=== PATIENT | female | born 1945 ===

== ENCOUNTER 2025-01-09 08:00 | Day surgery (SDC) | payer OTHER ==
[2025-01-01 10:48] VITALS: BP 114/64
[2025-01-01 11:35] LABS: BASO % 0.4 % (0.1-1.2); EOS # 0.13 (0.04-0.54); EOS % 2.8 % (0.7-7.0); LYMPH # 1.07 (1.18-3.74); LYMPH % 23.3 % (19.3-53.1); MEAN PLATELET VOLUME 9.90 fl (9.4-12.4); MONO # 0.42 (0.24-0.82); MONO % 9.2 % (4.7-12.5); NEUT # 2.95 (1.56-6.13); NEUT % 64.3 % (34.0-71.1); RED CELL DISTRIBUTION WIDTH 12.3 % (11.6-14.4)
[2025-01-01 12:01] LABS: URINE APPEARANCE Cloudy; URINE BILIRRUBIN Negative (NEGATIVE); URINE BLOOD Negative; URINE COLOR Yellow; URINE GLUCOSE Negative (NEGATIVE); URINE KETONE Trace (NEGATIVE); URINE LEUKOCYTE Moderate; URINE NITRATE Positive; URINE PROTEIN Negative (NEGATIVE); URINE UROBILINOGEN 0.2 E.U./dl
[2025-01-01 12:02] LABS: URINE EPITHELIAL CELLS 21.0 uL (0.0-38.8); URINE WBC 74.4 uL (0.0-23.2)
[2025-01-01 12:12] LABS: INR 0.99
[2025-01-01 12:17] LABS: ALT/SGPT 26.0 U/L (12-78); AST/SGOT 24.0 U/L (15-37); BILIRUBIN TOTAL 0.41 mg/dL (0.3-1.2); BUN CREA RATIO 25.0 (7.0-25.0); CREATININE SERUM 0.64 mg/dL (0.55-1.02); GFR 89.74; GLOBULINA 4.0 G/DL (2.4-3.5); GLUCOSE FASTING 102.0 mg/dL (65-100); OSMOLALITY SERUM 284.0 MOSM/KG (275-295)
[2025-01-01 12:25] LABS: URINE BACTERIA > 9821.5 uL (0.0-1933); URINE CAST 0.43 uL (0.0-1.40); URINE RBC 1.0 uL (0.0-20.8)
[2025-01-01 12:26] LABS: TYPE CELLS RENAL TUBULAR
[~2025-01-09] VITALS: Ht 157.5 cm; Wt 61.2 kg
[~2025-01-09 08:00] MED LIST: GAMMAGARD LIQUI25 ML; PRAVASTATIN SOD10 MG PO; ZYRTEC10 M3 PO
[2025-01-09] MEDS ORDERED: METRONIDAZOLE/SODIUM CHLORIDE 500 MG/100 ML PIGGYBACK IV ONE (08:54)
[2025-01-09] MEDS ORDERED: HEMOSTATIC MATRIX 1 KIT KIT TOP ONE (09:34)
[2025-01-09] MEDS ORDERED: BUPIVACAINE HCL/MPF 0.5% 30ML VIAL ONE (09:34)
[2025-01-09] MEDS ORDERED: LIDOCAINE HCL 1%/EPINEPHRINE 20ML VIAL IJ ONE (09:34)
[2025-01-09] MEDS ORDERED: POVIDONE-IODINE 118 ML BOTT TOP ONE (09:34)
[2025-01-09] MEDS ORDERED: DIBUCAINE 30 GM TUBE ONE (09:34)
[2025-01-09] MEDS ORDERED: DEXAMETHASONE SODIUM PHOSPHATE 4 MG/ML VIAL ONE (11:03)
[2025-01-09] MEDS ORDERED: DEXAMETHASONE SODIUM PHOSPHATE 4 MG/ML VIAL IV ONE (11:15)
[2025-01-09] MEDS ORDERED: LEVOFLOXACIN750 MG PO (11:24)
[2025-01-09] MEDS ORDERED: TRAM1TAB98 PO (11:25)
[2025-01-09] MEDS ORDERED: INTESTINEX680 M1 PO (11:25)
[2025-01-09] MEDS ORDERED: NEURONTIN300 MG PO (11:25)
[2025-01-09] MEDS ORDERED: CELECOXIB200 MG PO (11:25)
== END 2025-01-09 15:40 | disposition home or self-care (01) ==
LOC: CIR.AMB 08:00
PROVIDERS: ATTEND Surgery
DX: K64.2 Third degree hemorrhoids (principal); K64.4 Residual hemorrhoidal skin tags; K62.5 Hemorrhage of anus and rectum; Z88.0 Allergy status to penicillin